=== PATIENT | female | born 1955 | race Caucasian/White ===

== ENCOUNTER 2019-02-13 09:44 | Outpatient (REF) | payer MEDICARE, MEDICAID, SELFPAY ==
[2019-02-13 21:55] LABS: Calculated LDL 81 mg/dL; Cholesterol 151 mg/dL (50-200); Glucose 89 mg/dL (70-100); HDL Cholesterol 32 mg/dL (40-60); Triglyceride 192 mg/dL (30-150)
== END 2019-02-13 10:04 ==
LOC: NCHCN 09:44
PROVIDERS: PCP Nurse Practitioner Family; Visit Provider Nurse Practitioner Family
DX: E78.5 Hyperlipidemia, unspecified (principal); E66.3 Overweight; Z13.1 Encounter for screening for diabetes mellitus
CPT/HCPCS: 80061; 82947

== ENCOUNTER 2021-09-04 09:58 | Outpatient (REF) | payer MEDICARE, MEDICAID, SELFPAY ==
[2021-09-04 15:00] LABS: Abs Immature Grans 0.23 10^3/uL (0.0-0.06); Absolute Basophil Count 0.03 10^3/uL (0.0-0.2); Absolute Eosinophil Count 0.23 10^3/uL (0.0-0.7); Absolute Lymphocyte Count 2.38 10^3/uL (1.2-3.4); Absolute Monocyte Count 0.83 10^3/uL (0.1-0.8); Absolute Neutrophil Count 5.47 10^3/uL (1.2-6.7); Basophils % 0.3; Eosinophils % 2.5; HCT 35.9 % (36.0-46.0); HGB 10.7 g/dL (11.2-15.7); Immature Grans % 2.5; MCH 23.5 pg (27.0-33.0); MCHC 29.8 % (32.0-36.0); MCV 79 fL (80-95); MPV 9.7 fL (8.0-11.0); Monocytes % 9.1; Neutrophils % 59.6; Platelet Count 511 10^3/uL (130-400); RBC 4.55 10^6/uL (3.93-5.22); RDW 18.3 % (11.7-14.6); WBC 9.17 10^3/uL (4.4-10.8)
[2021-09-04 15:17] LABS: ALT 19 U/L (14-59); AST 14 U/L (15-37); Albumin 3.1 g/dL (3.4-5.0); Alkaline Phosphatase 145 U/L (46-116); Anion Gap 9.9 mmol/L (3-11); BUN 16 mg/dL (7-18); Bilirubin, Total 0.3 mg/dL (0.2-1.0); CO2 28.1 mmol/L (21.0-32.0); CREATININE 0.7 mg/dL (0.55-1.02); Calcium 8.7 mg/dL (8.5-10.1); Chloride 104 mmol/L (98-107); Glucose 85 mg/dL (74-106); Potassium 4.5 mmol/L (3.5-5.1); Sodium 142 mmol/L (136-145); Total Protein 5.9 g/dL (6.4-8.2)
[2021-09-04 15:39] LABS: Vitamin D 25 Total 19.2 ng/mL (30-100)
== END 2021-09-04 09:59 | disposition home or self-care (01) ==
LOC: NCHCN 09:58
PROVIDERS: PCP Nurse Practitioner Family; Visit Provider Internal Medicine Rheumatology
DX: M81.0 Age-related osteoporosis without current pathological fracture (principal); Z79.899 Other long term (current) drug therapy; M47.814 Spondylosis without myelopathy or radiculopathy, thoracic region
CPT/HCPCS: 80053; 82306; 85025

== ENCOUNTER 2021-12-23 19:18 | Outpatient (REF) | payer MEDICARE, SELFPAY ==
[2021-12-23 14:22] LABS: HCT 37.5 % (36.0-46.0); HGB 11.3 g/dL (11.2-15.7); MCHC 30.1 % (32.0-36.0); MCV 86 fL (80-95); MPV 10.2 fL (8.0-11.0); Platelet Count 505 10^3/uL (130-400); RBC 4.34 10^6/uL (3.93-5.22); RDW-SD 62.6 fL; WBC 6.94 10^3/uL (4.4-10.8)
[2021-12-23 14:42] LABS: ALT 21 U/L (14-59); AST 25 U/L (15-37); Albumin 2.9 g/dL (3.4-5.0); Alkaline Phosphatase 159 U/L (46-116); Anion Gap 5.5 mmol/L (3-11); BUN 17 mg/dL (7-18); Bilirubin, Total 0.6 mg/dL (0.2-1.0); CO2 29.5 mmol/L (21.0-32.0); CREATININE 0.7 mg/dL (0.55-1.02); Calcium 8.6 mg/dL (8.5-10.1); Calculated LDL 34 mg/dL (<100); Chloride 105 mmol/L (98-107); Cholesterol 77 mg/dL (<200); Estimated GFR 94.15 (mL/min/1.73m2); Glucose 103 mg/dL (74-106); HDL Cholesterol 28 mg/dL (40-60); Potassium 4.6 mmol/L (3.5-5.1); Sodium 140 mmol/L (136-145); Total Protein 6.5 g/dL (6.4-8.2); Triglyceride 75 mg/dL (<150)
== END 2021-12-23 19:19 | disposition home or self-care (01) ==
LOC: NCHCN 19:18
PROVIDERS: PCP Nurse Practitioner Family; Visit Provider Nurse Practitioner Family
DX: E78.5 Hyperlipidemia, unspecified (principal); E66.3 Overweight
CPT/HCPCS: 80053; 80061; 85027

== ENCOUNTER 2022-01-06 18:22 | Outpatient (REF) | payer MEDICARE, MEDICAID, SELFPAY ==
[2022-01-06 14:52] LABS: GGT 27 U/L (5-55)
== END 2022-01-06 18:23 | disposition home or self-care (01) ==
LOC: NCHCN 18:22
PROVIDERS: PCP Nurse Practitioner Family; Visit Provider Nurse Practitioner Family
DX: R74.8 Abnormal levels of other serum enzymes (principal)
CPT/HCPCS: 82977

== ENCOUNTER 2022-05-25 14:00 | Outpatient (REF) | payer MEDICARE, MEDICAID, SELFPAY ==
--- NOTE | 2022-05-25 13:34 | SKI_PTH ---
PATIENT: Yomaira Greene LOC: [facility] U#:[id number] AGE/SX: 67/F ROOM: RE05/25/[address]: Lalitha Carrera : 1955 BED: DIS: 05/25/2022 SPEC #: [id number] RECD: 05/26/22 12:37 STATUS: NAV REAlvarez #: [id number] JORDAN: 05/25/22 13:[address]: Lalitha Finch DEPT: Surgical Specimen RECD BY: Fannie Peterson Tissues: 1 - SKIN BIOPSY(SHAVE/PUNCH) 2 - SKIN BIOPSY(SHAVE/PUNCH) Procedures: SKIN LEVEL 4 Comments: [id number]
== END 2022-05-25 14:01 | disposition home or self-care (01) ==
LOC: LBN 14:00
PROVIDERS: PCP Nurse Practitioner Family; Visit Provider Nurse Practitioner Family
DX: L82.0 Inflamed seborrheic keratosis (principal); L82.1 Other seborrheic keratosis
CPT/HCPCS: 88305

== ENCOUNTER 2022-08-06 14:57 | Outpatient (REF) | payer MEDICARE, MEDICAID, SELFPAY ==
[2022-08-06 21:53] LABS: Abs Immature Grans 0.09 10^3/uL (0.0-0.06); Absolute Basophil Count 0.02 10^3/uL (0.0-0.2); Absolute Eosinophil Count 0.14 10^3/uL (0.0-0.7); Absolute Lymphocyte Count 1.96 10^3/uL (1.2-3.4); Absolute Monocyte Count 0.54 10^3/uL (0.1-0.8); Absolute Neutrophil Count 3.34 10^3/uL (1.2-6.7); Basophils % 0.3; Eosinophils % 2.3; HCT 36.8 % (36.0-46.0); HGB 11.2 g/dL (11.2-15.7); Immature Grans % 1.5; Lymphocytes % 32.2; MCH 28.8 pg (27.0-33.0); MCHC 30.4 % (32.0-36.0); MCV 95 fL (80-95); MPV 10.6 fL (8.0-11.0); Monocytes % 8.9; Neutrophils % 54.8; Nucleated RBC 0.3 % (0.0-0.3); Platelet Count 471 10^3/uL (130-400); RBC 3.89 10^6/uL (3.93-5.22); RDW 21.1 % (11.7-14.6); RDW-SD 72.1 fL; WBC 6.09 10^3/uL (4.4-10.8)
[2022-08-06 22:01] LABS: Anisocytosis 1+
[2022-08-06 22:02] LABS: ALT 22 U/L (14-59); AST 29 U/L (15-37); Albumin 3.1 g/dL (3.4-5.0); Alkaline Phosphatase 147 U/L (46-116); Anion Gap 9.3 mmol/L (3-11); BUN 19 mg/dL (7-18); Bilirubin, Total 0.5 mg/dL (0.2-1.0); CO2 26.7 mmol/L (21.0-32.0); CREATININE 0.8 mg/dL (0.55-1.02); Calcium 8.7 mg/dL (8.5-10.1); Chloride 104 mmol/L (98-107); Estimated GFR 79.71 (mL/min/1.73m2); Glucose 119 mg/dL (74-106); Potassium 4.5 mmol/L (3.5-5.1); Sodium 140 mmol/L (136-145); Total Protein 6.5 g/dL (6.4-8.2)
[2022-08-06 22:23] LABS: Vitamin D 25 Total 31.5 ng/mL (30-100)
[2022-08-08 02:12] LABS: Parathyroid Hormone,Intact 38 pg/mL (19-88)
[2022-08-10 11:09] LABS: Albumin 55.3 % (55.8-66.1); Albumin g/dL 3.2 g/dL (3.6-5.2); Total Protein 5.8 g/dL (6.3-8.2)
== END 2022-08-06 14:58 | disposition home or self-care (01) ==
LOC: LBN 14:57
PROVIDERS: PCP Nurse Practitioner Family; Visit Provider Internal Medicine Rheumatology
DX: M80.00XS Age-related osteoporosis with current pathological fracture, unspecified site, sequela (principal); M47.814 Spondylosis without myelopathy or radiculopathy, thoracic region; M81.0 Age-related osteoporosis without current pathological fracture; Z79.899 Other long term (current) drug therapy
CPT/HCPCS: 80053; 82306; 83970; 84165; 85025

== ENCOUNTER 2023-07-12 18:03 | Outpatient (REF) | payer MEDICARE, MEDICAID, SELFPAY ==
[2023-07-12 15:49] LABS: HCT 32.4 % (36.0-46.0); HGB 9.2 g/dL (11.2-15.7); MCH 24.2 pg (27.0-33.0); MCV 85 fL (80-95); MPV 10.5 fL (8.0-11.0); Platelet Count 595 10^3/uL (130-400); RDW-SD 62.3 fL; WBC 4.85 10^3/uL (4.4-10.8)
[2023-07-12 16:20] LABS: RDW 21.4 % (11.7-14.6)
[2023-07-12 16:21] LABS: MCHC 28.4 % (32.0-36.0)
[2023-07-12 16:37] LABS: Vitamin D 25 Total 13.3 ng/mL (30-100)
[2023-07-12 16:44] LABS: ALT 23 U/L (14-59); AST 26 U/L (15-37); Albumin 2.7 g/dL (3.4-5.0); Alkaline Phosphatase 179 U/L (46-116); Anion Gap 7.1 mmol/L (3-11); BUN 14 mg/dL (7-18); Bilirubin, Total 0.6 mg/dL (0.2-1.0); CO2 26.9 mmol/L (21.0-32.0); CREATININE 0.6 mg/dL (0.55-1.02); Calcium 8.4 mg/dL (8.5-10.1); Calculated LDL 23 mg/dL (<100); Chloride 105 mmol/L (98-107); Cholesterol 63 mg/dL (<200); Glucose 97 mg/dL (74-106); HDL Cholesterol 31 mg/dL (40-60); Potassium 4.4 mmol/L (3.5-5.1); Sodium 139 mmol/L (136-145); TSH 0.68 uIU/Ml (0.36-3.74); Triglyceride 49 mg/dL (<150)
== END 2023-07-12 18:04 | disposition home or self-care (01) ==
LOC: NCHCN 18:03
PROVIDERS: PCP Nurse Practitioner Family; Visit Provider Nurse Practitioner Family
DX: E78.5 Hyperlipidemia, unspecified (principal); D64.9 Anemia, unspecified; M81.0 Age-related osteoporosis without current pathological fracture; Z79.899 Other long term (current) drug therapy
CPT/HCPCS: 80053; 80061; 82306; 85027; 84443

== ENCOUNTER 2023-07-23 18:58 | Outpatient (REF) | payer MEDICARE, MEDICAID, SELFPAY ==
[2023-07-23 15:56] LABS: Iron 10 ug/dL (50-170); Total Iron Binding Capacity 368 ug/dL (250-450); Transferrin Sat 3 % (15-50)
[2023-07-23 16:08] LABS: Ferritin 9 ng/mL (8-252)
[2023-07-23 16:54] LABS: Folate > 20.0 ng/mL (8.6-20.0); Vitamin B12 < 80 pg/mL (193-986)
== END 2023-07-23 18:59 | disposition home or self-care (01) ==
LOC: NCHCN 18:58
PROVIDERS: PCP Nurse Practitioner Family; Referring Provider Nurse Practitioner Family; Visit Provider Nurse Practitioner Family
DX: D64.9 Anemia, unspecified (principal); E53.8 Deficiency of other specified B group vitamins
CPT/HCPCS: 82607; 82728; 82746; 83540; 83550

== ENCOUNTER 2023-09-06 12:49 | Outpatient (REF) | payer MEDICARE, MEDICAID, SELFPAY ==
[2023-09-06 15:23] LABS: Iron 9 ug/dL (50-170); Total Iron Binding Capacity 315 ug/dL (250-450); Transferrin Sat 3 % (15-50)
[2023-09-06 15:29] LABS: ALT 30 U/L (14-59); AST 34 U/L (15-37); Albumin 2.2 g/dL (3.4-5.0); Alkaline Phosphatase 206 U/L (46-116); Anion Gap 5.7 mmol/L (3-11); BUN 15 mg/dL (7-18); Bilirubin, Total 0.4 mg/dL (0.2-1.0); CO2 27.3 mmol/L (21.0-32.0); CREATININE 0.6 mg/dL (0.55-1.02); Calcium 8.1 mg/dL (8.5-10.1); Chloride 106 mmol/L (98-107); Ferritin 10 ng/mL (8-252); Glucose 94 mg/dL (74-106); Potassium 4.5 mmol/L (3.5-5.1); Sodium 139 mmol/L (136-145); Total Protein 5.2 g/dL (6.4-8.2)
[2023-09-06 15:33] LABS: Vitamin B12 < 80 pg/mL (193-986)
[2023-09-06 15:34] LABS: Vitamin D 25 Total 14.8 ng/mL (30-100)
== END 2023-09-06 12:50 | disposition home or self-care (01) ==
LOC: NCHCN 12:49
PROVIDERS: PCP Nurse Practitioner Family; Visit Provider Nurse Practitioner Family
DX: E61.1 Iron deficiency (principal); E55.9 Vitamin D deficiency, unspecified; R63.4 Abnormal weight loss; E53.8 Deficiency of other specified B group vitamins
CPT/HCPCS: 80053; 82306; 82607; 82728; 83540; 83550

== ENCOUNTER 2023-10-05 15:35 | Outpatient (REF) | payer MEDICARE, MEDICAID, SELFPAY ==
[2023-10-05 20:52] LABS: HCT 29.9 % (36.0-46.0); HGB 8.7 g/dL (11.2-15.7); MCV 90 fL (80-95); MPV 10.7 fL (8.0-11.0); Platelet Count 564 10^3/uL (130-400); RBC 3.34 10^6/uL (3.93-5.22); RDW-SD 81.6 fL; WBC 6.85 10^3/uL (4.4-10.8)
[2023-10-05 20:59] LABS: Iron 10 ug/dL (50-170); Total Iron Binding Capacity 340 ug/dL (250-450); Transferrin Sat 3 % (15-50)
[2023-10-05 21:14] LABS: Ferritin 16 ng/mL (8-252)
[2023-10-05 21:55] LABS: MCHC 29.1 % (32.0-36.0)
[2023-10-05 21:56] LABS: RDW 25.3 % (11.7-14.6)
[2023-10-08 12:56] LABS: IgA 139 mg/dL (85-499); Interpretation (See Note); Tissue Transglutaminase IgA <4.0 CU (<20.0)
== END 2023-10-05 15:36 | disposition home or self-care (01) ==
LOC: NCHCN 15:35
PROVIDERS: PCP Nurse Practitioner Family; Visit Provider Nurse Practitioner Family
DX: D64.9 Anemia, unspecified (principal)
CPT/HCPCS: 82784; 83516; 85027; 82728; 83540; 83550

== ENCOUNTER 2024-05-15 16:15 | Outpatient (REF) | payer MEDICARE, MEDICAID, SELFPAY ==
[2024-05-15 16:11] LABS: HCT 45.6 % (36.0-46.0); HGB 14.1 g/dL (11.2-15.7); MCH 27.1 pg (27.0-33.0); MCHC 30.9 % (32.0-36.0); MCV 88 fL (80-95); MPV 11.2 fL (8.0-11.0); Platelet Count 504 10^3/uL (130-400); RBC 5.21 10^6/uL (3.93-5.22); RDW 22.7 % (11.7-14.6); RDW-SD 70.6 fL; WBC 13.54 10^3/uL (4.4-10.8)
[2024-05-15 16:23] LABS: Iron 123 ug/dL (50-170); Total Iron Binding Capacity 323 ug/dL (250-450); Transferrin Sat 38 % (15-50)
[2024-05-15 16:52] LABS: Anion Gap 6.2 mmol/L (3-11); BUN 19 mg/dL (7-18); CO2 29.8 mmol/L (21.0-32.0); CREATININE 0.7 mg/dL (0.55-1.02); Calcium 9.2 mg/dL (8.5-10.1); Chloride 104 mmol/L (98-107); Estimated GFR 92.41 (mL/min/1.73m2); Ferritin 35 ng/mL (8-252); Glucose 98 mg/dL (74-106); Potassium 4.7 mmol/L (3.5-5.1); Sodium 140 mmol/L (136-145); Vitamin B12 287 pg/mL (193-986); Vitamin D 25 Total 52.3 ng/mL (30-100)
[2024-05-15 17:38] LABS: Uric Acid 2.2 mg/dL (2.6-6.0)
== END 2024-05-15 16:16 | disposition home or self-care (01) ==
LOC: NCHCN 16:15
PROVIDERS: PCP Nurse Practitioner Family; Visit Provider Nurse Practitioner Family
DX: D50.9 Iron deficiency anemia, unspecified (principal); E55.9 Vitamin D deficiency, unspecified; E53.8 Deficiency of other specified B group vitamins; R22.31 Localized swelling, mass and lump, right upper limb; I10 Essential (primary) hypertension
CPT/HCPCS: 80048; 82306; 85027; 82607; 82728; 83540; 83550; 84550

== ENCOUNTER 2024-07-11 16:01 | Outpatient (REF) | payer MEDICARE, MEDICAID, SELFPAY ==
[2024-07-11 16:45] LABS: HCT 45.9 % (36.0-46.0); HGB 14.4 g/dL (11.2-15.7); MCH 28.3 pg (27.0-33.0); MCHC 31.4 % (32.0-36.0); MCV 90 fL (80-95); MPV 10.7 fL (8.0-11.0); Platelet Count 430 10^3/uL (130-400); RBC 5.08 10^6/uL (3.93-5.22); RDW 15.1 % (11.7-14.6); RDW-SD 49.8 fL
[2024-07-11 17:13] LABS: ALT 13 U/L (14-59); AST 16 U/L (15-37); Albumin 3.1 g/dL (3.4-5.0); Alkaline Phosphatase 166 U/L (46-116); BUN 20 mg/dL (7-18); Bilirubin, Total 0.3 mg/dL (0.2-1.0); CREATININE 0.6 mg/dL (0.55-1.02); Calcium 8.9 mg/dL (8.5-10.1); Chloride 104 mmol/L (98-107); Glucose 114 mg/dL (74-106); Potassium 4.7 mmol/L (3.5-5.1); Sodium 140 mmol/L (136-145); TSH 0.34 uIU/mL (0.36-3.74); Total Protein 5.9 g/dL (6.4-8.2); Vitamin D 25 Total 52 ng/mL (30-100)
[2024-07-11 17:24] LABS: PHOSPHORUS 4.1 mg/dL (2.6-4.7)
== END 2024-07-11 16:02 | disposition home or self-care (01) ==
LOC: LBN 16:01
PROVIDERS: PCP Nurse Practitioner Family; Visit Provider Student in an Organized Health Care Education/Training Program
DX: R93.89 Abnormal findings on diagnostic imaging of other specified body structures (principal); M81.0 Age-related osteoporosis without current pathological fracture
CPT/HCPCS: 80053; 82306; 85027; 84100; 84443

== ENCOUNTER 2024-07-31 12:27 | Outpatient (REF) | payer MEDICARE, MEDICAID, SELFPAY ==
[2024-07-31 15:11] LABS: FREE T4 0.92 ng/dL (0.76-1.46)
== END 2024-07-31 12:28 | disposition home or self-care (01) ==
LOC: NCHCN 12:27
PROVIDERS: PCP Nurse Practitioner Family; Visit Provider Nurse Practitioner Family
DX: R94.6 Abnormal results of thyroid function studies (principal)
CPT/HCPCS: 84439; 84443

== ENCOUNTER 2025-03-19 21:26 | Outpatient (REF) | payer MEDICARE, MEDICAID, SELFPAY ==
[2025-03-19 15:37] LABS: Anion Gap 4.3 mmol/L (3-11); BUN 14 mg/dL (9-23); CO2 29.7 mmol/L (20.0-31.0); Calcium 9.1 mg/dL (8.3-10.6); Chloride 106 mmol/L (98-107); Glucose 93 mg/dL (74-106); Potassium 4.2 mmol/L (3.5-5.1); Sodium 140 mmol/L (136-145)
[2025-03-19 16:51] LABS: Vitamin D 25 Total 100 ng/mL (30-100)
== END 2025-03-19 21:27 | disposition home or self-care (01) ==
LOC: NCHCN 21:26
PROVIDERS: Internal Medicine Rheumatology; PCP Nurse Practitioner Family; Visit Provider Nurse Practitioner Family
DX: M81.0 Age-related osteoporosis without current pathological fracture (principal)
CPT/HCPCS: 80048; 82306

== ENCOUNTER 2025-04-02 13:11 | Outpatient (REF) | payer MEDICARE, MEDICAID, SELFPAY ==
[2025-04-02 15:46] LABS: Anion Gap 6.8 mmol/L (3-11); BUN 16 mg/dL (9-23); CO2 29.2 mmol/L (20.0-31.0); Calcium 9.2 mg/dL (8.3-10.6); Chloride 104 mmol/L (98-107); Glucose 95 mg/dL (74-106); Potassium 4.5 mmol/L (3.5-5.1); Sodium 140 mmol/L (136-145)
[2025-04-02 15:50] LABS: Vitamin D 25 Total 88 ng/mL (30-100)
== END 2025-04-02 13:12 | disposition home or self-care (01) ==
LOC: NCHCN 13:11
PROVIDERS: PCP Nurse Practitioner Family; Visit Provider Internal Medicine Rheumatology
DX: M81.0 Age-related osteoporosis without current pathological fracture (principal)
CPT/HCPCS: 80048; 82306